=== PATIENT | male | born 1965 | race Caucasian/White ===

== ENCOUNTER 2019-11-18 01:17 | Outpatient (CLI) | payer OTHER, SELFPAY ==
[2019-11-18 19:25] LABS: SARS-CoV-2 RNA PCR Negative
== END 2019-11-18 01:18 | disposition home or self-care (01) ==
LOC: ANHCOVIDDT 01:18
PROVIDERS: PCP Family Medicine; Visit Provider Internal Medicine Gastroenterology
DX: Z01.812 Encounter for preprocedural laboratory examination (principal); Z20.828 Contact with and (suspected) exposure to other viral communicable diseases
CPT/HCPCS: 87635; C9803; U0003

== ENCOUNTER 2019-11-20 00:49 | Day surgery (SDC) | payer OTHER, SELFPAY ==
[2019-11-14 10:19] VITALS: BMI 26.2
[2019-11-20 07:46] VITALS: BP 125/83; PULSE 66; RESP 16; TEMP 36.4; O2SAT 98; BMI 25.9
[2019-11-20] MEDS: LACTATED RINGERS 1,000 ML 150 ML IV CONT (08:03)
--- NOTE | 2019-11-20 08:30 | WPDANESEPPF ---
Anes - Initial Pre Proc Eval Procedure: Operation Date: 11/20/19 08:30 Proposed Procedures p Esophagogastroduodenoscopy - Martin Clements MD Date/Time: 11/20/19 08:30 Surgeon: Martin Clements MD Pre Op Diagnosis: GERD Patient Data Age: 54 Gender: M Height: 5 ft 10 in Weight: 81.9 kg Last Vital Signs Temp 97.6 F 11/20/19 07:46 Pulse 66 11/20/19 07:46 Resp 16 11/20/19 07:46 BP 125/83 11/20/19 07:46 Pulse Ox 98 11/20/19 07:46 Allergies Allergy/AdvReac Type Severity Reaction Status Date / Time No Known Allergies Allergy Verified 11/20/19 07:45 Home Medications Medication Instructions Recorded Confirmed Type omeprazole 40 mg capsule,delayed 40 mg PO DAILY #30 cap 10/14/19 11/20/19 Rx release rosuvastatin 20 mg tablet 20 mg PO DAILY #60 tablet 11/04/19 11/20/19 Rx Patient hx anesthesia problems: none Family hx anesthesia problems: none PMFSH Past Medical History Medical History (Updated 11/20/19 @ 08:28 by Mayito Bolanos MD) Gastro-esophageal reflux disease without esophagitis Mixed hyperlipidemia Social History Social History Smoking status: Never smoker Alcohol intake: current Drinks per week: 20 Substance use: never Substance use type: does not use Living arrangements: with family Spiritual care concerns: No Anes - Eval Final PreProcedure Day of Procedure 11/20/19 08:30 Patient weight: normal Heart: regular rate and rhythm Lungs: clear to auscultation Airway: Mallampati scale class II Neurological: alert and oriented Last oral intake: >/= 8 hours ASA classification: II Emergent: no Anesthetic plan: proceed Anesthesia type and monitoring: general GIVS and standard monitoring Informed Consent: The patient's anesthetic plan and its attendant risks and benefits were discussed with the patient/family/POA. Questions were solicited and answers provided to the satisfaction of the patient/family/POA.
--- NOTE | 2019-11-20 08:39 | WPDGICN ---
Assessment and Plan Assessment and plan (1) Chronic GERD: Code(s): K21.9 - Gastro-esophageal reflux disease without esophagitis Status: Acute Assessment and Plan: Yazmin hartman has a long history of GE reflux disease. Recent flare of symptoms with heartburn and epigastric pain despite being on omeprazole 40 mg p.o. daily. It is uncertain what cause this flare to occur. Plan is for strict diet control. Anti-reflux measures. Continue proton pump inhibitor therapy. An EGD will be performed. (2) Epigastric abdominal pain: Code(s): R10.13 - Epigastric pain Status: Acute GI Consult Note Consult date/time: 11/20/19 08:39 HPI: [facility] 54 [facility] Dr Ramiro Huang. Patient has a long history of acid reflux. Previously on lansoprazole. He was changed to omeprazole to40mg p.o. daily. An over the last several months has had increasing epigastric pain. Heartburn. He states it worsens with eating. And is constantly tender in the midepigastric area of the abdomen. He denies any weight loss or bleeding. He has had no recent change in medications. No other specific changes that would precipitate pain. Patient had a colonoscopy in 2018. Did have a previous endoscopy 6 or 7 years ago. Review of Systems Review of Systems: All systems reviewed & are unremarkable except as noted in HPI and below PMFSH Past Medical History Medical History (Updated 11/20/19 @ 08:42 by Martin Clements MD) Gastro-esophageal reflux disease without esophagitis Mixed hyperlipidemia Social History Social History Smoking status: Never smoker Alcohol intake: current Drinks per week: 20 Substance use: never Substance use type: does not use Living arrangements: with family Spiritual care concerns: No Meds Home Medications and Allergies Home Medications Medication Instructions Recorded Confirmed Type omeprazole 40 mg capsule,delayed 40 mg PO DAILY #30 cap 10/14/19 11/20/19 Rx release rosuvastatin 20 mg tablet 20 mg PO DAILY #60 tablet 11/04/19 11/20/19 Rx Allergies Allergy/AdvReac Type Severity Reaction Status Date / Time No Known Allergies Allergy Verified 11/20/19 07:45 Vital Signs Vital Signs - 24 hr 11/20/19 07:46 Temperature 97.6 F Pulse Rate 66 Respiratory Rate 16 Blood Pressure 125/83 Pulse Oximetry 98 Exam Narrative: Exam Narrative: Physical exam reveals patient to be alert. Vital signs stable. HEENT exam unremarkable. Lungs are clear to auscultation and percussion. Heart is without murmur or extra sounds. Abdominal exam bowel sounds are present soft nontender with no hepatosplenomegaly. Rectal exam is deferred at this time.
[2019-11-20 08:59] VITALS: BP 127/84; PULSE 68; RESP 20; O2SAT 97
[2019-11-20 09:09] VITALS: BP 115/73; PULSE 68; RESP 20; O2SAT 96
[2019-11-20 09:23] VITALS: BP 135/80; PULSE 59; RESP 20; O2SAT 99
== END 2019-11-20 09:40 | disposition home or self-care (01) ==
PROVIDERS: PCP Family Medicine; Visit Provider Internal Medicine Gastroenterology
PROC: 0DJ08ZZ Inspection of Upper Intestinal Tract, Via Natural or Artificial Opening Endoscopic (ICD-10-PCS; CPT 43235; principal; 2019-11-20 08:30)
DX: K21.9 Gastro-esophageal reflux disease without esophagitis (principal); R10.13 Epigastric pain; E78.2 Mixed hyperlipidemia
CPT/HCPCS: 43235; J2704; J7120

== ENCOUNTER 2021-06-17 08:02 | Outpatient (CLI) | payer OTHER, SELFPAY ==
--- NOTE | ~2021-06-17 | NM_ITS ---
EXAMINATION: NM stress w perf spect multi DATE: 06/17/2021 10:59 INDICATION: Chest pain. TECHNIQUE: Rest images were obtained following intravenous administration of 10.6 mCi Tc99m tetrofosm in (Myoview). The patient performed an exercise activity. At peak exercise, 30.8 mCi Tc99m tetrofosmi n (Myoview) was administered intravenously, and stress images were obtained. Data was reconstructed i nto short axis and horizontal and vertical long axis SPECT images. Gated SPECT images were also obtai barak. COMPARISON: None. FINDINGS: There is no definite reversible or fixed perfusion abnormality to suggest ischemia or infar ction. There is no segmental wall motion abnormality. Left ventricular ejection fraction measures > 70%. IMPRESSION: 1. No definite ischemia or infarct. 2. Normal left ventricular ejection fraction measuring >70%. Reviewed, dictated and finalized at location A.
--- NOTE | 2021-06-17 08:24 | EST_ITS ---
Patient Info Name: Madan Rahman Age: 55 years : 1965 Gender: Male Ht: 69 in Wt: 185 lbs BSA: 2.04 m2 Exam Date: 06/17/2021 9:44 AM Exam Location: [facility] Stress Patient Status: Outpatient Admit Date: 06/17/2021 Staff Ordering Physician: Sakshi Alex Attending Provider: Sakshi Alex Exercise Technologist: Dania Fisher RDCS Exercise Physician: Hector Akers DO Exam Type: CA stress test treadmill w NM Study Info Indications R94.31 - Abnormal electrocardiogram ECG EKG A nuclear stress test was performed. Summary 1. 1. Negative Charbel exercise stress test for ischemic ST changes by ECG criteria. 2. 2. Good functional capacity, achieving 12 METs of workload. 3. 3. Appropriate HR response to exercise. 4. 4. Appropriate HR recovery at 1 minute post exercise. 5. 5. Nuclear scan to follow and will be reported separately. Please correlate with it. 6. 6. Patient informed of the above results. Protocol: Charbel Stress ECG Details Stage: REST Duration (min): 6 min : 25 sec Speed (mph): 0.0 Grade (%): 0 HR (bpm): 70 SBP (mmHg): 136 DBP (mmHg): 91 METS: --- Stage: REST Duration (min): 12 min : 0 sec Speed (mph): 0.0 Grade (%): 0 HR (bpm): 76 SBP (mmHg): 136 DBP (mmHg): 91 METS: --- Stage: STAGE 1 Duration (min): 1 min : 0 sec Speed (mph): 1.7 Grade (%): 10 HR (bpm): 95 SBP (mmHg): 136 DBP (mmHg): 91 METS: --- Stage: STAGE 1 Duration (min): 2 min : 0 sec Speed (mph): 1.7 Grade (%): 10 HR (bpm): 101 SBP (mmHg): 136 DBP (mmHg): 91 METS: --- Stage: STAGE 1 Duration (min): 3 min : 0 sec Speed (mph): 1.7 Grade (%): 10 HR (bpm): 101 SBP (mmHg): 177 DBP (mmHg): 83 METS: --- Stage: STAGE 2 Duration (min): 1 min : 0 sec Speed (mph): 2.5 Grade (%): 12 HR (bpm): 106 SBP (mmHg): 177 DBP (mmHg): 83 METS: --- Stage: STAGE 2 Duration (min): 2 min : 0 sec Speed (mph): 2.5 Grade (%): 12 HR (bpm): 111 SBP (mmHg): 183 DBP (mmHg): 85 METS: --- Stage: STAGE 2 Duration (min): 3 min : 0 sec Speed (mph): 2.5 Grade (%): 12 HR (bpm): 117 SBP (mmHg): 183 DBP (mmHg): 85 METS: --- Stage: STAGE 3 Duration (min): 1 min : 0 sec Speed (mph): 3.4 Grade (%): 14 HR (bpm): 121 SBP (mmHg): 141 DBP (mmHg): 85 METS: --- Stage: STAGE 3 Duration (min): 2 min : 0 sec Speed (mph): 3.4 Grade (%): 14 HR (bpm): 130 SBP (mmHg): 167 DBP (mmHg): 84 METS: --- Stage: STAGE 3 Duration (min): 3 min : 0 sec Speed (mph): 3.4 Grade (%): 14 HR (bpm): 136 SBP (mmHg): 184 DBP (mmHg): 88 METS: --- Stage: STAGE 4 Duration (min): 1 min : 0 sec Speed (mph): 4.2 Grade (%): 16 HR (bpm): 145 SBP (mmHg): 184 DBP (mmHg): 88 METS: --- Stage: STAGE 4
--- NOTE | 2021-06-21 12:32 | WPDHOLTEREM ---
Holter/Event Monitor Holter/Event Monitor Date of procedure: 06/17/21 Holter/Event Procedure: 24 Hr Holter Monitor Indications: PVC's, Abnormal EKG Conclusion: 1. 24 hour holter monitor on 06/17/21. 2. Underlying rhythm is sinus rhythm. HR range 55-117 bpm; average HR 78 bpm. 3. There are 7 premature supraventricular complexes and 2 supraventricular couplets. One episode of atrial tachycardia at 126 bpm lasting 4 beats. 4. There are 318 premature ventricular complexes, 3 ventricular bigeminy and 3 ventricular trigeminy. No ventricular tachycardia. 5. No sinoatrial or atrioventricular blocks. No significant pauses greater than 2 seconds. 6. No symptoms available for correlation.
== END 2021-06-17 08:03 | disposition home or self-care (01) ==
PROVIDERS: PCP Family Medicine; Visit Provider Physician Assistant Medical
DX: I49.3 Ventricular premature depolarization (principal); R07.89 Other chest pain
CPT/HCPCS: 78452; 93017; 93225; 93226; A9502

== ENCOUNTER 2022-08-02 08:00 | Outpatient (CLI) | payer OTHER, SELFPAY ==
[2022-08-03 09:05] LABS: Anion Gap 7 mmol/L (8-16); Blood Urea Nitrogen 19 mg/dL (9-20); Calcium 9.2 mg/dL (8.4-10.2); Carbon Dioxide 30 mmol/L (22-30); Chloride 97 mmol/L (98-107); Estimated Glomerular Filt Rate > 60; Glucose 92 mg/dL (65-110); Potassium 3.8 mmol/L (3.4-5.0); Sodium 134 mmol/L (137-145)
== END 2022-08-02 08:01 | disposition home or self-care (01) ==
LOC: ANHSURGERY 16:51
PROVIDERS: Anesthesiology; PCP Family Medicine; Visit Provider Surgery
DX: K42.9 Umbilical hernia without obstruction or gangrene (principal); T50.2X5A Adverse effect of carbonic-anhydrase inhibitors, benzothiadiazides and other diuretics, initial encounter; Z01.818 Encounter for other preprocedural examination
CPT/HCPCS: 36415; 80048; 86850; 86900; 86901

== ENCOUNTER 2022-08-08 00:18 | Day surgery (SDC) | payer OTHER, SELFPAY ==
[2022-08-01 10:07] VITALS: BMI 26.5
--- NOTE | 2022-08-01 10:16 | PC.NURSE ---
Report to the Outpatient Waiting Room, entrance under the green pavilion located off [facility], at time 09:00AM on date 08-08-22. Planned Procedure Time: 11:00AM. Time changes happen often and if your time is changed the preop area will call you the afternoon before. - You and your visitor will be asked to self-screen and do not enter if you have any COVID symptoms. - A mask is optional within the hospital at this time. Patients may have clear liquids (water, carbonated beverages, clear teas, apple juice) until 3 hours prior to surgery (08:00AM) with a maximum of 20 ounces. - No food from midnight until time of surgery Take the following medications with a SIP of water the morning of surgery: N/A TAKE ALL NORMAL MEDS 08-07 DO NOT STOP ANY OF YOUR OTHER PRESCRIPTION MEDICATIONS PRIOR TO SURGERY EXCEPT THE FOLLOWING Medications to discontinue per physician N/A Please no make-up, nail romansh, hairspray, perfume, deodorant, or body powder the day of surgery. No jewelry (including any body piercings) or valuables the day of surgery, leave them at home. Please take a shower or bath the night before, or the morning of, surgery with an antibacterial soap. Wear comfortable, loose fitting clothing. - Jewelry must be removed prior to entering the operating room. Rings and piercings that are not removed may be cut off. - The hospital will not accept responsibility for valuables. - Please leave all valuables, including medications, at home the day of surgery. If you are going home after surgery, a licensed patient transportation driver must drive you home. - NO public transportation without another adult if you receive anesthesia. - We recommend that an adult stay with you for 24 hours following discharge. - We also recommend that you do not drive, make important decision, drink alcoholic beverages, or take any drugs that were not prescribed by your health care provider for at least 24 hours after your discharge time. Follow any additional instructions given to you from your surgeon. If you or anyone in your household have experienced Covid symptoms in the past week, please notify your surgeon or the nurse liaison at the phone number below for possible testing. Telephone instructions given to PATIENT and asked if any additional questions and then verbalized understanding. Patient advised to call surgeon office or pre surgery nurse liaison [phone] if any additional questions.
[2022-08-08] VITALS (10 sets, daily range): BP systolic 96–142; BP diastolic 50–89; PULSE 58–89; RESP 10–20; TEMP 36–36.2; O2SAT 93–98
--- NOTE | 2022-08-08 06:15 | ECG_ITS ---
Measurements Intervals [place] Rate: 77 P: -16 AK: 155 QRS: -7 QRSD: 96 T: -8 QT: 378 QTc: 430 Interpretive Statements SINUS RHYTHM LOW QRS VOLTAGE IN PRECORDIAL LEADS [QRS DEFLECTION < 1.0 mV IN CHEST LEADS] NO PREVIOUS ECG AVAILABLE FOR COMPARISON Electronically Signed On 08-08-2022 16:17:08 CDT by Nigel Cruz M.D.
[2022-08-08] MEDS: LACTATED RINGERS 1,000 ML 30 ML IV CONT ×3 (09:30→13:38)
--- NOTE | 2022-08-08 10:42 | PM.IMHP ---
H&P: HPI History of Present Illness Date/Time: 08/08/22 10:42 Chief Complaint: Umbilical hernia Narrative: This is a 57-year-old man who presents for umbilical hernia repair. He reports no changes since last seen in the office. Review of Systems Review of Systems: All systems reviewed & are unremarkable except as noted in HPI and below Constitutional: Constitutional: Denies chills, Denies fever(s), Denies headache(s) and Denies weight loss Eyes: Eyes: Denies change in vision ENT: Denies dizziness, Denies headache(s), Denies neck mass and Denies throat swelling Cardiovascular: Cardiovascular: Denies chest pain, Denies lightheadedness and Denies dyspnea Respiratory: Respiratory: Denies cough, Denies dyspnea and Denies wheezing Gastrointestinal: Gastrointestinal: Denies abdominal pain, Denies change in bowel habits, Denies nausea and Denies vomiting Genitourinary: Genitourinary: Denies hematuria and Denies dysuria Musculoskeletal: Musculoskeletal: Reports as per HPI Integumentary/Breasts: Skin/Breast: Reports as per HPI Neurologic: Denies dizziness and Denies headache(s) Allergic/Immunologic: Allergic/Immunologic: Denies throat swelling and Denies wheezing [facility] Past Medical History Medical History (Updated 07/25/22 @ 16:51 by Ramiro Hobson MD) Acute viral syndrome Gastro-esophageal reflux disease without esophagitis Mixed hyperlipidemia Overweight with body mass index (BMI) of 28 to 28.9 in adult Family History Family History Father Hypertension Family history of coronary artery disease Mother Family history of diabetes mellitus in first degree relative COPD (chronic obstructive pulmonary disease) Tobacco abuse Sibling Lyme disease Sibling , cancer Cerebrovascular accident Sibling No problems noted. Other Family history of malignant neoplasm Social History Social History Smoking status: Never smoker Second hand tobacco smoke exposure: Yes ( A CHILD) Alcohol intake: current Drinks per week: 15 Substance use: never Substance use type: does not use Lack of Transportation: No Lack of Food: Never True Current Housing: I Have Housing Concerned About Future Housing: No Difficulty Paying Gas/Electric Bills: No Difficulty Paying for Meds: No Currently Unemployed: No Education: Trade/Vocational Certificate Difficulty w/ Childcare or Family Care: No Living arrangements: with family Occupation/Education: occupation 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 Gender identity (if verbalized by the patient): Male Spiritual care concerns: No Meds Home Medications and Allergies Home Medications Medication Instructions Recorded Confirmed Type amlodipine 10 mg tablet 10 mg PO .QD 06/05/22 08/01/22 History indapamide 2.5 mg tablet 2.5 mg PO .QD 06/05/22 08/01/22 History lisinopril 10 mg tablet 10 mg PO .QD 06/05/22 08/01/22 History omeprazole 40 mg capsule,delayed 40 mg PO DAILY #30 caps 06/05/22 08/01/22 Rx release rosuvastatin 20 mg tablet (Crestor) 20 mg PO DAILY #90 tabs 08/01/22 08/01/22 Rx Allergies Allergy/AdvReac Type Severity Reaction Status Date / Time No Known Allergies Allergy Verified 08/08/22 10:45 Exam Const: General: no acute distress and alert Orientation/consciousness: patient oriented x3 HENMT: Head: normocephalic and atraumatic Ears: hearing grossly normal bilaterally Face/Nose/Sinus: Normal nares present Mouth: Yes Normal oral and palatal mucosa present Eyes: Periorbital: periorbital findings normal Sclera: sclerae normal EOM: EOMs intact bilaterally Neck: Neck: normal visual inspection, no lymphadenopathy and trachea midline Chest: Chest palpation & inspection: normal inspection of the chest Resp: Effort & Inspection: normal respiratory effort
--- NOTE | 2022-08-08 10:45 | WPDHPUPDATE1 ---
History and Physical Update Update Date/Time: 08/08/22 10:45 History and Physical has been reviewed, including an updated exam of the patient. There are NO changes in the patient's condition. Risks, benefits, and alternatives have been discussed and questions answered. Patient agrees to proceed with procedure.
--- NOTE | 2022-08-08 10:45 | WPDANESEPPF ---
Anes - Initial Pre Proc Eval Procedure: Operation Date: 08/08/22 11:00 Proposed Procedures p Laparoscopic Umbilical Hernia Repair with Mesh, Davinci Assisted - Tyler Amador DO Date/Time: 08/08/22 10:45 Surgeon: Tyler Amador DO Pre Op Diagnosis: umbilical hernia Patient Data Age: 57 Gender: M Height: 1.78 m Weight: 84 kg Allergies Allergy/AdvReac Type Severity Reaction Status Date / Time No Known Allergies Allergy Verified 08/08/22 10:45 Home Medications Medication Instructions Recorded Confirmed Type amlodipine 10 mg tablet 10 mg PO .QD 06/05/22 08/08/22 History indapamide 2.5 mg tablet 2.5 mg PO .QD 06/05/22 08/08/22 History lisinopril 10 mg tablet 10 mg PO .QD 06/05/22 08/08/22 History omeprazole 40 mg capsule,delayed 40 mg PO DAILY #30 caps 06/05/22 08/08/22 Rx release rosuvastatin 20 mg tablet (Crestor) 20 mg PO DAILY #90 tabs 08/01/22 08/08/22 Rx Patient hx anesthesia problems: none Family hx anesthesia problems: none Results Review: All pre-operative results and documents have been reviewed as part of the pre-operative evaluation. [facility] Past Medical History Medical History (Updated 07/25/22 @ 16:51 by Ramiro Hobson MD) Acute viral syndrome Gastro-esophageal reflux disease without esophagitis Mixed hyperlipidemia Overweight with body mass index (BMI) of 28 to 28.9 in adult Family History Family History Father Hypertension Family history of coronary artery disease Mother Family history of diabetes mellitus in first degree relative COPD (chronic obstructive pulmonary disease) Tobacco abuse Sibling Lyme disease Sibling , cancer Cerebrovascular accident Sibling No problems noted. Other Family history of malignant neoplasm Social History Social History Smoking status: Never smoker Second hand tobacco smoke exposure: Yes ( A CHILD) Alcohol intake: current Drinks per week: 15 Substance use: never Substance use type: does not use Lack of Transportation: No Lack of Food: Never True Current Housing: I Have Housing Concerned About Future Housing: No Difficulty Paying Gas/Electric Bills: No Difficulty Paying for Meds: No Currently Unemployed: No Education: Trade/Vocational Certificate Difficulty w/ Childcare or Family Care: No Living arrangements: with family Occupation/Education: occupation 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 Gender identity (if verbalized by the patient): Male Spiritual care concerns: No Anes - Eval Final PreProcedure Day of Procedure 08/08/22 10:45 Patient weight: obese Heart: regular rate and rhythm Lungs: clear to auscultation Airway: Mallampati scale class II Neurological: alert and oriented Last oral intake: >/= 8 hours ASA classification: III Emergent: no Anesthetic plan: proceed Anesthesia type and monitoring: general ETT and standard monitoring Results Review: All pre-operative results and documents have been reviewed as part of the pre-operative evaluation. Informed Consent: The patient's anesthetic plan and its attendant risks and benefits were discussed with the patient/family/POA. Questions were solicited and answers provided to the satisfaction of the patient/family/POA.
[2022-08-08] MEDS: ACETAMINOPHEN 500 MG TABLET 1000 MG PO (10:46)
[2022-08-08] MEDS: KETOROLAC 15 MG/ML VIAL (*BKC) IV PUSH (10:47)
[2022-08-08] MEDS: ceFAZolin 2 GM/D5W 50 ML 2 GM/50 ML BAG IVPB (11:06)
[2022-08-08] MEDS: BUPIVACAINE/EPINEPHRINE 0.5% 50 ML VIAL 30 ML INFILTRATE (11:45)
--- NOTE | 2022-08-08 12:29 | W.PM.PROC2 ---
Procedure Note - Detailed Date of Procedure 08/08/22 Pre-op Diagnosis umbilical hernia Post-op Diagnosis Same (3 cm umbilical hernia) Procedure Performed Laparoscopic 3 cm umbilical hernia repair with mesh, da Rosibel assisted Surgeon Tyler Amador DO Anesthesia General and Local (Exparel) Indications This is a 57-year-old man who presented with an enlarging umbilical hernia that he 1st noticed about 8 or 9 years ago. The hernia has gradually increased in size over time and has also become increasingly painful and at times slightly red. He was found to have a reducible umbilical hernia measuring about 3 cm on exam. Discussions were made with the patient about treatment options and decision was made to proceed with robotic assisted laparoscopic umbilical hernia repair with mesh. Findings Laparoscopic umbilical hernia repair was performed. A robotic intraperitoneal onlay mesh technique was utilized for repair. I excised the preperitoneal fat around the hernia defect along with the hernia sac. The hernia defect measured 3 cm. This was closed using 0 Stratafix running absorbable suture in a vertical fashion. I then chose a 15 cm x [address] mesh to reinforce the closure. No other intra-abdominal abnormalities were noted. Description of Procedure Procedure as well as risks, benefits, and alternatives were discussed with the patient. Written consent was obtained and placed in chart prior to procedure. Patient was brought back to surgical suite. He was placed supine on operating table. Time-out was done to confirm patient and procedure. He was then intubated by the anesthesia department. A bump was placed under his left hip, and the bed was flexed slightly to extend the space between his costal margin and iliac crest. His abdomen was prepped and draped in sterile fashion using chlorhexidine prep. A 5 millimeter incision was made in the left upper quadrant, and a 5 millimeter Optiview trocar was advanced through the abdominal layers under direct visualization. Once inside the abdominal cavity, carbon dioxide insufflation was used to create a pneumoperitoneum. His abdomen was inspected. An 8 millimeter incision was made in the left lower quadrant, and an 8 millimeter robotic trocar was placed under direct visualization. Another 8 millimeter incision was made in the left lateral abdomen, and an 8 millimeter robotic trocar was placed under direct visualization. The 5 millimeter port was removed, an 8 mm port was placed under direct visualization this location. The robotic arms were brought up to the patient's bedside and secured to the ports. The camera and instruments were inserted, and I then moved over to the robotic console and took control of the camera and instruments. After careful thorough inspection of the abdominal cavity, I began my dissection at the hernia. The preperitoneal fat and hernia sac was excised using scissors with electrocautery. I then also dissected the falciform ligament away from the defect using scissors with electrocautery. I then measured the hernia size. The hernia measured 3 cm. The fascia was closed using an 0-Stratafix running suture in a vertical fashion. A 15 cm x [address] mesh was then placed within the abdominal cavity. This was oriented vertically with the mesh centered on the hernia defect. The mesh was then secured to the abdominal wall using 2-0 V lock running absorbable suture around the entire perimeter. The repair was inspected, and one final inspection was made around the abdominal cavity. The robotic instruments were then removed, and the robotic arms were disengaged from the trocars. The ports were then removed under direct visualization, the camera was removed, and the pneumoperitoneum was released. The 0 Vicryl transfascial suture was tied down. The skin of the incisions was then approximated using 4-0 Monocryl subcuticular suture. Exofin glue was then applied on top. The pat
[2022-08-08] MEDS: fentaNYL CITRATE INJ (*CRX) 100 MCG/2 ML VIAL 25 MCG IV PUSH ×5 (13:28→14:42)
[2022-08-08] MEDS: oxyCODONE HCL (*CRX) 5 MG TAB IR PO (14:03)
== END 2022-08-08 15:50 | disposition home or self-care (01) ==
PROVIDERS: PCP Family Medicine; Visit Provider Surgery
PROC: (CPT 49593; principal; 2022-08-08 11:00)
DX: K42.9 Umbilical hernia without obstruction or gangrene (principal); E78.2 Mixed hyperlipidemia; K21.9 Gastro-esophageal reflux disease without esophagitis
CPT/HCPCS: 49593; S2900; 36415; 80048; 86850; 86900; 86901; 93005; A9270; C1781; C9290; J0690; J1100; J1885; J2250; J2405; J2704; J2710; J3010; J7120

== ENCOUNTER 2024-09-04 01:00 | Day surgery (SDC) | payer OTHER, SELFPAY ==
[2024-08-20 09:47] VITALS: BMI 26.6
--- OUTSIDE RECORDS SUMMARY | 2024-09-04 01:03 | XMS_ITS | Clinical Summary ---
Author Organization [facility] Address [address] [place] [id number] Care Team Providers Care Career And Guidance Counselor Name Role Phone Ramiro Hobson MD Primary Care Provider [phone] Allergies No known active allergies Medications esomeprazole DR (NexIUM) 40 mg capsule TAKE 1 CAPSULE BY MOUTH DAILY FOR 4 WEEKS 04/16/2024 Active indapamide (LOZOL) 2.5 mg tablet TAKE 1 TABLET(2.5 MG) BY MOUTH DAILY 90 tablet 3 05/06/2024 Active rosuvastatin (CRESTOR) 20 mg tablet TAKE 1 TABLET(20 MG) BY MOUTH DAILY 90 tablet 3 05/06/2024 Active lisinopriL (PRINIVIL,ZESTR IL) 10 mg tablet TAKE 1 TABLET(10 MG) BY MOUTH DAILY 90 tablet 3 07/18/2024 Active amLODIPine (NORVASC) 10 mg tablet TAKE 1 TABLET(10 MG) BY MOUTH DAILY 90 tablet 3 07/18/2024 Active Active Problems No known active problems Social History Tobacco Use Types Packs/Day Years Used Date Smoking Tobacco: Never Passive Smoke Exposure: Past Smokeless Tobacco: Never Tobacco Cessation:Counseling Given: Not Answered Sex and Gender Information Value Date Recorded Sex Assigned at Not on file Legal Sex Male 12:28 PM CDT Gender Identity Not on file Sexual Orientation Not on file Obstetrics History Last Filed Vital Signs Vital Sign Reading Time Taken Comments Blood Pressure 113/72 04/28/2024 1:16 PM CDT Pulse 75 04/28/2024 1:16 PM CDT Temperature 37.1 C (98.7 F) 04/28/2024 1:16 PM CDT Respiratory Rate - - Oxygen Saturation 98% 04/28/2024 1:16 PM CDT Inhaled Oxygen Concentration - - Weight 90.2 kg (198 lb 12.8 oz) 04/28/2024 1:16 PM CDT Height 176.5 cm (5' 9.5) 04/28/2024 1:16 PM CDT Body Mass Index 28.94 04/28/2024 1:16 PM CDT Plan of Treatment Health Maintenance Due Date Last Done Comments Colon Cancer Screening-Colonoscopy 1967 Depression Screening 1967 Hepatitis C Screening 1967 Prostate Cancer Screening-PSA 1967 DTaP/Tdap/Td Vaccine (1 - Tdap) 08/01/1978 Hepatitis B Screening 08/01/1985 Regular Well Visit/Exam 18-64 08/01/1985 Zoster Vaccine (1 of 2) 08/01/2017 Covid-19 Vaccine (4 - 2023-2 5 season) 2023 02/28/2021, 06/03/2020, 05/12/2020 Influenza Vaccine (#1) 2024 02/28/2021 Pneumococcal vaccine <65 Aged Out No longer eligible based on patient's age to complete this topic Insurance [facility] CMR [facility] C[facility] Care Teams Career And Guidance Counselor Relationship Specialty Start Date End Date Ramiro Hobson MD PCP - General Family Medicine 06/09/21
--- OUTSIDE RECORDS SUMMARY | 2024-09-04 01:03 | XMS_ITS | Encounter Summary ---
Author Organization [facility] Address [address] [place] [address] Phone Care Team Providers Care Lab Head Name Role Phone Ramiro Hobson MD Primary Care Provider [phone] Encounter Details Date Type Department Care Team (Latest Contact Info) Description 04/26/2021 Orders Only [facility] Scanning, Provider Social History Tobacco Use Types Packs/Day Years Used Date Smoking Tobacco: Never Assessed Sex and Gender Information Value Date Recorded Sex Assigned at Not on file Legal Sex Male 12:28 PM CDT Gender Identity Not on file Sexual Orientation Not on file documented as of this encounter Plan of Treatment Not on file documented as of this encounter Procedures Procedure Name Priority Date/Time Associated Diagnosis Comments SCAN - LABS 04/26/2021 documented in this encounter Results * SCAN - LABS (04/26/2021) us Provider Scanning Final Result documented in this encounter Visit Diagnoses Not on filedocumented in this encounter Care Teams Lab Head Relationship Specialty Start Date End Date Ramiro Hobson MD PCP - General Family Medicine 06/09/21 documented as of this encounter
--- OUTSIDE RECORDS SUMMARY | 2024-09-04 01:03 | XMS_ITS | Referral Summary ---
Author Organization [facility] Address [address] [place] [id number] Care Team Providers Care Concession Manager Name Role Phone Ramiro Hobson MD Primary Care Provider [phone] Allergies No known active allergies Medications esomeprazole [...] on file Sexual Orientation Not on file Last Filed Vital Signs Vital Sign Reading [...] 04/28/2024 1:16 PM CDT Plan of Treatment Not on file Insurance [facility] Care Teams Concession Manager Relationship Specialty Start Date End Date Ramiro Hobson MD PCP - General Family Medicine 06/09/21
[2024-09-04 06:26] VITALS: BP 112/79; PULSE 89; RESP 16; TEMP 36.6; O2SAT 99
[2024-09-04] MEDS: LACTATED RINGERS 1,000 ML 150 ML IV CONT (06:35)
--- NOTE | 2024-09-04 07:17 | WPDANESEPPF ---
Anes - Initial Pre Proc Eval Procedure: Operation Date: 09/04/24 07:30 Proposed Procedures p Colonoscopy - Con Alanis MD Date/Time: 09/04/24 07:17 Surgeon: Con Alanis MD Pre Op Diagnosis: Family HX of colon polyps Patient Data Age: 59 Gender: M Height: 1.75 m Weight: 82.2 kg Last Vital Signs Temp 97.8 F 09/04/24 06:26 Pulse 89 09/04/24 06:26 Resp 16 09/04/24 06:26 BP 112/79 09/04/24 06:26 Pulse Ox 99 09/04/24 06:26 O2 Del Method Room Air 09/04/24 06:26 Allergies Allergy/AdvReac Type Severity Reaction Status Date / Time No Known Allergies Allergy Verified 09/04/24 06:23 Home Medications ?Medication ?Instructions ?Recorded ?Confirmed ?Type amlodipine 10 mg tablet 10 mg PO .QD 06/05/22 09/04/24 History indapamide 2.5 mg tablet 2.5 mg PO .QD 06/05/22 09/04/24 History lisinopril 10 mg tablet 10 mg PO .QD 06/05/22 09/04/24 History rosuvastatin 20 mg tablet (Crestor) 20 mg PO DAILY #90 tabs 02/06/23 09/04/24 Rx esomeprazole magnesium 40 mg 40 mg PO DAILY #90 caps 08/02/24 09/04/24 Rx capsule,delayed release (Nexium) semaglutide (weight loss) 2.4 2.4 mg subcut WEEKLY 08/20/24 08/28/24 History mg/0.75 mL subcutaneous pen injector ciclopirox 0.77 % topical gel 1 applic topical BID 4 weeks #100 08/28/24 09/04/24 Rx grams Patient hx anesthesia problems: none Family hx anesthesia problems: none Results Review: All pre-operative results and documents have been reviewed as part of the pre-operative evaluation. [facility] Past Medical History Medical History Acute viral syndrome Overweight with body mass index (BMI) of 28 to 28.9 in adult Gastro-esophageal reflux disease without esophagitis Mixed hyperlipidemia Surgical History Surgical History Hx of umbilical hernia repair laparoscopic UHR with mesh, brianna assisted on 08/08/22 Family History Family History Father Hypertension Family history of coronary artery disease Mother Family history of diabetes mellitus in first degree relative COPD (chronic obstructive pulmonary disease) Tobacco abuse Sibling Lyme disease Sibling , cancer Cerebrovascular accident Sibling No problems noted. Other Family history of malignant neoplasm Social History Social History Smoking status: Never smoker Second hand tobacco smoke exposure: Yes ( A CHILD) Alcohol intake: current Drinks per week: 15 Substance use: never Substance use type: does not use Other substance usage details: 2x day (to help with sleep) Do You Feel Safe in your Home?: Yes Lack of Transportation: No Lack of Food: Never True Current Housing: I Have Housing Concerned About Future Housing: No Difficulty Paying Gas/Electric Bills: No Difficulty Paying for Meds: No Currently Unemployed: No Education: Trade/Vocational Certificate Difficulty w/ Childcare or Family Care: No Living arrangements: with family Occupation/Education: occupation 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 Gender identity (if verbalized by the patient): Male Sexual Orientation (if Verbalized by the Patient): Straight or Heterosexual Spiritual care concerns: No Anes - Eval Final PreProcedure Day of Procedure 09/04/24 07:17 Patient weight: overweight Lungs: normal air movement Airway: Mallampati scale class II Neurological: alert and oriented Last oral intake: >/= 8 hours ASA classification: III Emergent: no Anesthetic plan: proceed Anesthesia type and monitoring: general GIVS and standard monitoring Results Review: All pre-operative results and documents have been reviewed as part of the pre-operative evaluation. HTN, hyperlipidemia, snoring, off GLP1 for 10 days, ETOH use 2-3 drinks/day. Pt active w golfing, no cp or sob. Informed Consent: The patient's anesthetic plan and its attendant risks and benefits were discussed with the patient/family/POA. Questions were solicited and answers provided to the satisfaction of the patient/family/POA.
--- NOTE | 2024-09-04 07:30 | PM.IMHP ---
H&P: HPI History of Present Illness Date/Time: 09/04/24 07:30 Chief Complaint: Family history of colon polyps Narrative: This patient has family history of colorectal polyps. his mother had colorectal polyps at age 50. In addition, an uncle of colon cancer. Review of Systems Review of Systems: All systems reviewed & are unremarkable except as noted in HPI and below PMFSH Past Medical History Medical History Acute viral syndrome Overweight with body mass index (BMI) of 28 to 28.9 in adult Gastro-esophageal reflux disease without esophagitis Mixed hyperlipidemia Surgical History Surgical History Hx of umbilical hernia repair laparoscopic UHR with mesh, brianna assisted on 08/08/22 Family History Family History Father Hypertension Family history of coronary artery disease Mother Family history of diabetes mellitus in first degree relative COPD (chronic obstructive pulmonary disease) Tobacco abuse Sibling Lyme disease Sibling , cancer Cerebrovascular accident Sibling No problems noted. Other Family history of malignant neoplasm Social History Social History Smoking status: Never smoker Second hand tobacco smoke exposure: Yes ( A CHILD) Alcohol intake: current Drinks per week: 15 Substance use: never Substance use type: does not use Other substance usage details: 2x day (to help with sleep) Do You Feel Safe in your Home?: Yes Lack of Transportation: No Lack of Food: Never True Current Housing: I Have Housing Concerned About Future Housing: No Difficulty Paying Gas/Electric Bills: No Difficulty Paying for Meds: No Currently Unemployed: No Education: Trade/Vocational Certificate Difficulty w/ Childcare or Family Care: No Living arrangements: with family Occupation/Education: occupation 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 Gender identity (if verbalized by the patient): Male Sexual Orientation (if Verbalized by the Patient): Straight or Heterosexual Spiritual care concerns: No Meds Home Medications and Allergies Home Medications ?Medication ?Instructions ?Recorded ?Confirmed ?Type amlodipine 10 mg tablet 10 mg PO .QD 06/05/22 09/04/24 History indapamide 2.5 mg tablet 2.5 mg PO .QD 06/05/22 09/04/24 History lisinopril 10 mg tablet 10 mg PO .QD 06/05/22 09/04/24 History rosuvastatin 20 mg tablet (Crestor) 20 mg PO DAILY #90 tabs 02/06/23 09/04/24 Rx esomeprazole magnesium 40 mg 40 mg PO DAILY #90 caps 08/02/24 09/04/24 Rx capsule,delayed release (Nexium) semaglutide (weight loss) 2.4 2.4 mg subcut WEEKLY 08/20/24 08/28/24 History mg/0.75 mL subcutaneous pen injector ciclopirox 0.77 % topical gel 1 applic topical BID 4 weeks #100 08/28/24 09/04/24 Rx grams Allergies Allergy/AdvReac Type Severity Reaction Status Date / Time No Known Allergies Allergy Verified 09/04/24 06:23 Vital Signs Vital Signs - 24 hr 09/04/24 06:26 Temperature 97.8 F Pulse Rate 89 Respiratory Rate 16 Blood Pressure 112/79 Pulse Oximetry 99 Oxygen Delivery Room Air Exam Const: General: cooperative and healthy appearing Resp: Effort & Inspection: normal respiratory effort and able to speak in complete sentences Auscultation: clear to auscultation bilaterally Cardio: Rate: regular rate Rhythm: regular rhythm GI: Inspection: normal to inspection GI Palp: No No hepatosplenomegaly present Auscultation: normal bowel sounds Rectal Exam: deferred Skin: General skin exam: normal color Psych: Appearance: grossly normal Mental Status: mental status grossly normal Assessment and Plan Assessment and plan (1) Family history of polyps in the colon: Code(s): Z83.719 - Family history of colon polyps, unspecified Status: Acute Assessment and Plan: The patient is deemed a good candidate for the procedure. Consent signed. Will proceed.
[2024-09-04] MEDS: SIMETHICONE ORAL SUSPENSION 20 MG/0.3 ML 30 ML BOTTLE 0.6 ML IRRIGATION (07:37)
[2024-09-04 07:46] VITALS: BP 108/78; PULSE 81; RESP 25; O2SAT 95
[2024-09-04 07:56] VITALS: BP 117/78; PULSE 73; RESP 17; O2SAT 97
[2024-09-04 08:06] VITALS: BP 124/86; PULSE 73; RESP 15; O2SAT 99
== END 2024-09-04 08:14 | disposition home or self-care (01) ==
PROVIDERS: PCP Family Medicine; Referring Provider Internal Medicine Gastroenterology; Visit Provider Internal Medicine Gastroenterology
PROC: 0DJD8ZZ Inspection of Lower Intestinal Tract, Via Natural or Artificial Opening Endoscopic (ICD-10-PCS; CPT 45378; principal; 2024-09-04 07:30)
DX: Z12.11 Encounter for screening for malignant neoplasm of colon (principal); Z83.719 Family history of colon polyps, unspecified
CPT/HCPCS: 45378; J2003; J2704; J7120